=== PATIENT | male | born 1965 | race Caucasian/White ===

== ENCOUNTER 2024-03-26 00:56 | Emergency (ER) | payer BC, SELFPAY ==
[2024-03-26] VITALS (7 sets, daily range): BP systolic 101–120; BP diastolic 58–72; BMI 26.5
[2024-03-26 01:31] LABS: % Basophils 0.8 % (0-2); % Eosinophils 1.3 % (0-6); % Immature Granulocytes 0.4 % (0-0.5); % Lymphocytes 41.9 % (20.5-51.1); % Monocytes 7.8 % (1.7-9.3); % Neutrophils 47.8 % (42.2-75.2); Absolute Basophils 0.1 10^3/uL (0-0.2); Absolute Eosinophils 0.1 10^3/uL (0-0.7); Absolute Monocytes 0.6 10^3/uL (0.1-0.6); Absolute Neutrophils 3.4 10^3/uL (1.4-6.5); Hemoglobin 15.3 g/dL (13.0-18.0); Mean Corp Hgb Conc. 36.4 g/dL (33.0-37.0); Mean Corpuscular Hgb 31.2 pg (27.0-31.0); Mean Corpuscular Volume 85.7 fL (80.0-94.0); Mean Platelet Volume 11.8 fL (7.4-10.4); Nucleated Red Blood Cells % 0 % (-); Platelet Count 219 10^3/uL (130-400); Red Cell Dist. Width 11.6 % (11.5-14.5); White Blood Cell Count 7.2 10^3/uL (4.8-10.8)
[2024-03-26 01:43] LABS: ALT (SGPT) 37 U/L (0-50); AST (SGOT) 42 U/L (17-59); Albumin 4.4 g/dl (3.5-5.0); Alkaline Phosphatase 89 U/L (38-126); Blood Urea Nitrogen 26 mg/dl (9-20); Calcium 10.5 mg/dl (8.4-10.2); Carbon Dioxide 25 mmol/L (22-30); Chloride 106 mmol/L (98-107); Glucose 136 mg/dl (70-99); Potassium 3.8 mmol/L (3.5-5.1); Sodium 142 mmol/L (135-145); Total Bilirubin 0.5 mg/dl (0.2-1.3); Total Protein 6.8 g/dl (6.3-8.2); eGFR > 60.00
[2024-03-26 01:53] LABS: Troponin I < 0.012 ng/ml
--- NOTE | 2024-03-26 03:40 | ED.GENMED ---
History of Present Illness
<Baline Vuong [facility] - Last Filed: 03/26/24 03:56>
General
Chief Complaint: Heart Rate Problem
Source: patient
Time Seen by Provider: 03/26/24 03:31
History of Present Illness
History of Present Illness:
Pt is a 58 y/o male with PMHx of a-fib and PVCs presenting with increased PVCs tonight. He states he gets PVCs every night but tonight they felt 'heavier' when he was going to bed. He states around 11pm he began to feel them and then his heart felt
like it was racing. He states symptoms lasted for around 1.5 hours. He states he had covid 2 weeks ago and he has still felt run down. He states the last 2 days he has been building a deck and has been more active. He states he used to see
cardiology for a-fib and was on medications but he has been off medication and asymptomatic for 15 years. He states he has seen wood handler for his PVCs and has had a holter monitor but they said there was nothing they could do for them. He states
he has not seen cardiology in over 5 years. He currently states he is asymptomatic. He denies any chest pain, shortness of breath, abdominal pain, nausea, headache, cough, or edema.
Phy Exam
<Blaine Vuong [facility] - Last Filed: 03/26/24 03:56>
Physical Exam
Physical Exam:
GENERAL: Alert , in no apparent distress
EYE: pupils equal and reactive
Throat: Airway intact, no exudates
NECK: Supple, no significant adenopathy.
CARDIAC: Regular rate and rhythm .
LUNGS: Clear breath sounds bilaterally, no acute respiratory distress, no wheezes/rales/rhonchi
ABDOMEN: Soft, nondistended, nontender, no cvat
NEUROLOGICAL: Alert and oriented, no focal neuro deficits
SKIN: Warm and dry, skin intact.
MUSCULOSKELETAL: No edema, well perfused.
PSYCH: Normal and appropriate interaction.
Course
<ST DinoPA - Last Filed: 03/26/24 03:56>
Orders/Labs/Results
Orders:
Orders
03/26/24 01:09
Electrocardiogram (*1) Urgent
Reason for Study: Chest Pain
EKG- Treatment ONCE
Complete Blood Count/With Diff Urgent
Comprehensive Metabolic Panel Urgent
03/26/24 01:14
Troponin I Urgent
Abnormal Lab Results
03/26/24
01:09
MCH 31.2 H pg
(27.0-31.0)
MPV 11.8 H fL
(7.4-10.4)
BUN 26 H mg/dl
(9-20)
Glucose 136 H mg/dl
(70-99)
Calcium 10.5 H mg/dl
(8.4-10.2)
03/26/24 01:09
03/26/24 01:09
Vital Signs
Initial and Last Documented VS:
Initial Vital Signs
Temp Pulse Resp BP Pulse Ox
97.8 F 90 22 104/58 97
03/26/24 01:10 03/26/24 01:10 03/26/24 01:10 03/26/24 01:10 03/26/24 01:10
Last Documented Vital Signs
Temp Pulse Resp BP Pulse Ox
97.5 F 72 20 120/72 96
03/26/24 02:31 03/26/24 02:31 03/26/24 02:31 03/26/24 02:32 03/26/24 02:34
<Noreen Matthews DO - Last Filed: 03/26/24 04:02>
Orders/Labs/Results
Orders:
Orders
03/26/24 01:09
Electrocardiogram (*1) Urgent
Reason for Study: Chest Pain
EKG- Treatment ONCE
Complete Blood Count/With Diff Urgent
Comprehensive Metabolic Panel Urgent
03/26/24 01:14
Troponin I Urgent
Abnormal Lab Results
03/26/24
01:09
MCH 31.2 H pg
(27.0-31.0)
MPV 11.8 H fL
(7.4-10.4)
BUN 26 H mg/dl
(9-20)
Glucose 136 H mg/dl
(70-99)
Calcium 10.5 H mg/dl
(8.4-10.2)
03/26/24 01:09
03/26/24 01:09
Vital Signs
Initial and Last Documented VS:
Initial Vital Signs
Temp Pulse Resp BP Pulse Ox
97.8 F 90 22 104/58 97
03/26/24 01:10 03/26/24 01:10 03/26/24 01:10 03/26/24 01:10 03/26/24 01:10
Last Documented Vital Signs
Temp Pulse Resp BP Pulse Ox
97.5 F 72 20 120/72 96
03/26/24 02:31 03/26/24 02:31 03/26/24 02:31 03/26/24 02:32 03/26/24 02:34
<LUIS MANUEL Sun - Last Filed: 03/26/24 03:56>
MDM/Problems Addressed
Differential Diagnosis Includes:
Differential diagnosis includes but is not limited to PVCs, a-fib, dehydration
<LUIS MANUEL Sun - Last Filed: 03/26/24 03:56>
*Pulse Oximetry
Patient hypoxic: no
*EKG
Interpreted by ED Provider?: Yes
EKG Intrepretation Date: 03/26/24
Interpretation: normal
Comparison EKG: no comparison EKG present
Heart Rate: 79
Rate: normal
Rhythm: sinus
[place]: normal axis
Interval: normal interval
QRS Pattern: normal QRS
Ischemia: no ischemia
*Gate Technician Interpretation
Rate: normal
Interpretation: normal
Heart Rate: 72
Rhythm: sinus
*Critical Care Note
Total Time (30-74mins, 75-104mins- exclusive of procedures): Not Applicable
ED Attending Note
<LUIS MANUEL Sun - Last Filed: 03/26/24 03:56>
-
Portions of this chart may have been created with voice recognition software.� Occasional wrong word or��sound alike� substitutions may have occurred due to the inherent limitations of voice recognition software.
<Noreen Matthews DO - Last Filed: 03/26/24 04:02>
ED Attending Note
Patient seen and examined by attending physician: Yes
I performed the substantive portion of visit, reviewed & personally made and approve the management plan that is documented in note by myself or TOMMY.: Yes
ED Attending Note:
This is a 58-year-old gentleman who has remote history of paroxysmal atrial fibrillation, last episode occurring at least 12 years ago. He states episodes of A-fib generally occurred with strenuous exercise, participating in karate. He had been
following with a wood handler and at 1 point was maintained on flecainide and Lopressor but these were discontinued over 8 years ago and he has had no recurrent episodes and has had no follow-up with cardiology for at least 8 years.
He does admit to chronic PVCs, more noticeable at nighttime but tonight he developed an episode of rapid heartbeat feeling that his heart was beating hard and very rapidly. No accompanying shortness of breath nor chest pain, no diaphoresis nor
lightheadedness. Although he felt that his heart was beating rapidly, his symptoms were different from his previous episodes of A-fib 12 years ago.
He arrives via EMS and prehospital heart rate noted to be in the 80s. Patient states he was feeling improved upon EMS arrival but not completely resolved.
Since arrival to the ED however patient states he is been comfortable without return of symptoms and no palpitations or feeling that he he is having PVCs either.
He suffered COVID URI 2 weeks ago, has been mildly fatigued but no coughing or shortness of breath. He has been quite active, recently building a deck onto his pool which he finished yesterday. No difficulty with strenuous activities.
GENERAL: Alert , in no apparent distress
EYE: anicteric
NECK: Supple, nontender, no meningismus, no significant adenopathy.
ENT:oral mucosa is moist. No rhinorrhea.
CARDIAC: Regular rate and rhythm. no murmur. No rub.
LUNGS: Clear breath sounds bilaterally, no acute respiratory distress, no wheezes/rales/rhonchi
ABDOMEN: Soft, nondistended, without focal tenderness, normoactive BS.
NEUROLOGICAL: Alert and oriented x3, no focal neuro deficits. Gait is odonnell and steady.
SKIN: Warm and dry, normal color, skin intact. No rash.
MUSCULOSKELETAL: No C/C/E. peripheral pulses are full and equal b/l. No palpable tenderness.
PSYCH: Normal and appropriate interaction.
Concern for a brief episode of tachyarrhythmia, perhaps PAF which has resolved prior to arrival.
Monitor continues show normal sinus rhythm without ectopy.
EKG is unremarkable.
Labs are unremarkable save for mildly elevated BUN with normal creatinine. Patient has been working outdoors over the past several days and may have an element of mild dehydration.
Discussed importance of remaining well-hydrated on a daily basis. Avoid caffeinated beverages, decongestants.
Will refer to cardiology for follow-up.
Return precautions discussed.
Discharge Plan
Departure
Patient Disposition: Home (Routine Discharge)
Date of Disposition: 03/26/24
Time of Disposition: 03:56
Patient with high blood pressure during this ER visit?: No
Condition: Good
Discharge Problem:
Heart palpitations
Instructions: Palpitations (DC)
Prescriptions:
No Action
No Current Medications
0
Referrals:
Erika Turner, [Active] - Call in 1-3 days for appt
Interventions
Interventions:
*Risk Screen - Suicide Last Done: 03/26/24 01:10
*Neglect/Abuse Screening Last Done: 03/26/24 01:10
ED- Fall Risk Assessment Last Done: 03/26/24 02:34
ED- Cardiac Assessment Last Done: 03/26/24 02:34
ED- Pulmonary Assessment Last Done: 03/26/24 02:34
Discharge Date and Time
Print Language: MICRONESIAN
== END 2024-03-26 04:22 | disposition home or self-care (01) ==
LOC: EMR 00:56
PROVIDERS: EMERGENCY PHYSICIAN Emergency Medicine
DX: R00.2 Palpitations (principal); R53.83 Other fatigue; I48.0 Paroxysmal atrial fibrillation; Z86.16 Personal history of COVID-19
CPT/HCPCS: 99283; 80053; 84484; 85025; 93005